=== PATIENT | female | born 1950 | race Caucasian/White ===

== ENCOUNTER 2017-02-01 16:14 | Emergency (ER) | payer MEDICARE ==
--- NOTE | ~2017-02-01 | EKG ---
PATIENT: MARCO ANTONIO COLLADO UNIT #: [id number] Ventricular Rate: 93 BPM Atrial Rate: 93 BPM P-R Interval: 182 ms QRS Duration: 64 ms Q-T Interval: 370 ms QTC Calculation(Bezet): 460 ms P [place]: 60 degrees Calculated R [place]: 29 degrees Calculated T [place]: 37 degrees Diagnosis Line: Normal sinus rhythm Diagnosis Line: Normal ECG Diagnosis Line: Diagnosis Line: Confirmed by MEGHAN RAMIRES MD ([id number]) on 02/01/2017 Diagnosis Line: 5:44:35 PM INTERPRETING MD: IKE SUN
[~2017-02-01 16:14] MED LIST: ATENOLOL PO; ATENOLOL50 MG PO; FLEXERIL10 MG PO; NORVASC PO; PREDNISONE1 MG PO
[2017-02-01 17:42] LABS: BASOPHIL% 0.4 % (0-2.5); EOSINOPHIL# 0.3 X10e3 (0-0.7); EOSINOPHIL% 3.1 % (0.0-7.0); HEMATOCRIT 41.2 % (35.0-45.0); HEMOGLOBIN 13.4 gm/dL (12.0-16.0); LYMPHOCYTE% 17.6 % (17.0-45.0); MEAN CELL VOLUME 84.6 FL (83-96); MEAN CORPUSCULAR HEMOGLOBIN 27.5 PG (28-34); MEAN CORPUSCULAR HGB CONC 32.5 g/dL (30-36); MONOCYTE# 0.5 X10e3 (0-1.0); MONOCYTE% 4.2 % (3.0-12.0); NEUTROPHIL# 8.4 X10e3 (1.5-7.1); NEUTROPHIL% 74.7 % (40-75); PLATELET COUNT 415 X10e3 (140-420); RED BLOOD COUNT 4.87 X10e (3.90-5.30); RED CELL DISTRIBUTION WIDTH 13.2 % (11.0-15.5); WHITE BLOOD COUNT 11.3 X10e3 (4.0-10.5)
[2017-02-01 17:47] LABS: DIFF IND NO
[2017-02-01 18:03] LABS: BUN/CREATININE RATIO 22.22; CALCIUM SERUM 9.3 mg/dL (8.4-10.2); CREATININE SERUM 0.9 mg/dL (0.6-1.4); GLOM FILT RATE Estimated 66.2 mL/min (>60); POTASSIUM 3.6 mmol/L (3.5-5.1)
[2017-02-01 18:09] LABS: POC - CKMB 1.4 ng/mL (0.0-7.9); POC - TROPONIN <0.05 ng/mL (<=0.05)
== END 2017-02-01 18:47 | disposition home or self-care (01) ==
LOC: CED 16:14
PROVIDERS: Emergency Medicine
DX: I10 Essential (primary) hypertension (principal)
CPT/HCPCS: 36415; 80048; 82553; 84484; 85025; 93005; 99284

== ENCOUNTER 2017-02-27 00:11 | Emergency (ER) | payer MEDICARE ==
--- NOTE | ~2017-02-27 | CR72 ---
[facility] A Service of [facility] RADIOLOGY TEXT RESULTS PATIENT: MARCO ANTONIO COLLADO LOCATION: [facility] : 48 UNIT #: [id number] AGE: [address]: Aliyah Lai APRN SEX: F ORDER DR: [id number] [facility] [address] [place], [place] [address] [id number] MR#: [id number] Acc #: [id number] NAME: MARCO ANTONIO COLLADO : 1950 SEX: F STUDY DATE/TIME: 02/27/2017 2:25 UNIT: [facility] ROOM: STUDY DESCRIPTION: CR Chest Single View Portable Attending Physician: Aliyah Lai A.P.R.N. Ordering Physician: Aliyah Lai A.P.R.N. Primary Care Physician: No Primary Care Physician MEDICAL IMAGING REPORT This report is preliminary unless electronic signature is present EXAM Chest x-ray: 02/27/2017. HISTORY 66-year-old female in the ED with worsening chest pain tonight. She notes chronic chest pain. Some shortness of air. Hypertension. TECHNIQUE AP portable chest x-ray. FINDINGS Mild cardiomegaly. Pulmonary vascularity is normal. The lungs are expanded and clear. No visible pulmonary infiltrate or pleural effusion. IMPRESSION No active disease. No change since 11/05/2015. Dictated by... Greg Harden M.D. THIS IS AN ELECTRONICALLY VERIFIED REPORT Greg Harden M.D. at 02/27/2017 10:03 PM CASIE/marlen TD: 02/27/2017 10:41 JOB #: [id number] MEDICAL IMAGING REPORT Page 1 of 1 COPY
--- NOTE | ~2017-02-27 | EKG ---
PATIENT: MARCO ANTONIO COLLADO UNIT #: [id number] Ventricular Rate: 102 BPM Atrial Rate: 102 BPM P-R Interval: 162 ms QRS Duration: 66 ms Q-T Interval: 342 ms QTC Calculation(Bezet): 445 ms P [place]: 56 degrees Calculated R [place]: 35 degrees Calculated T [place]: 34 degrees Diagnosis Line: Sinus tachycardia Diagnosis Line: Otherwise normal ECG Diagnosis Line: No previous ECGs available Diagnosis Line: Confirmed by MAMI GUARDADO MD ([id number]) on 02/27/2017 Diagnosis Line: 11:05:45 PM INTERPRETING MD: DEBBY SUN
[2017-02-27 02:49] LABS: URINE SOURCE CLEAN CATCH
[2017-02-27 02:50] LABS: POC - CKMB 1.3 ng/mL (0.0-7.9); POC - TROPONIN <0.05 ng/mL (<=0.05)
[2017-02-27 02:52] LABS: URINE APPEARANCE CLEAR; URINE BILIRUBIN NEG (NEG); URINE BLOOD 1+ (NEG); URINE COLOR YELLOW; URINE GLUCOSE NEG (NEG); URINE KETONE NEG (NEG); URINE LEUKOCYTE ESTERASE NEG (NEG); URINE NITRATE NEG (NEG); URINE PH 7.5 (5-8); URINE PROTEIN 2+ (NEG); URINE SPECIFIC GRAVITY 1.008 (1.003-1.035); URINE UROBILINOGEN 0.2 MG/DL (NEG)
[2017-02-27 02:54] LABS: BASOPHIL# 0.1 X10e3 (0-0.3); BASOPHIL% 0.7 % (0-2.5); DIFF IND NO; EOSINOPHIL# 0.4 X10e3 (0-0.7); EOSINOPHIL% 3.4 % (0.0-7.0); HEMATOCRIT 39.1 % (35.0-45.0); HEMOGLOBIN 12.9 gm/dL (12.0-16.0); LYMPHOCYTE# 2.1 X10e3 (1.0-3.5); LYMPHOCYTE% 20.2 % (17.0-45.0); MEAN CELL VOLUME 84.8 FL (83-96); MEAN CORPUSCULAR HEMOGLOBIN 27.9 PG (28-34); MEAN CORPUSCULAR HGB CONC 32.9 g/dL (30-36); MEAN PLATELET VOLUME 8.1 FL (6.5-11.5); MONOCYTE# 0.5 X10e3 (0-1.0); MONOCYTE% 4.3 % (3.0-12.0); NEUTROPHIL# 7.5 X10e3 (1.5-7.1); NEUTROPHIL% 71.4 % (40-75); PLATELET COUNT 354 X10e3 (140-420); RED BLOOD COUNT 4.61 X10e (3.90-5.30); RED CELL DISTRIBUTION WIDTH 13.4 % (11.0-15.5); URINE BACTERIA AUWI NEG (NEGATIVE); URINE SQUAMOUS EPITHELIAL CELL NONE SEEN /[HPF]; UWBCS1 AUWI 0-2 (0-5); WHITE BLOOD COUNT 10.6 X10e3 (4.0-10.5)
[2017-02-27 02:55] LABS: CULTURE INDICATED? NO
[2017-02-27 03:32] LABS: ALBUMIN SERUM 4.1 g/dL (3.5-5.0); ALKALINE PHOSPHATASE 92 U/L (32-92); ALT (SGPT) 15 U/L (10-40); AST (SGOT) 17 U/L (10-42); BILIRUBIN, DIRECT <0.1 mg/dL (0.0-0.2); BILIRUBIN,INDIRECT 0.2 mg/dL (0.0-0.9); BILIRUBIN,TOTAL 0.3 mg/dL (0.2-2.0); BLOOD UREA NITROGEN 20 mg/dL (9-23); CALCIUM SERUM 9.2 mg/dL (8.4-10.2); CARBON DIOXIDE 27 mmol/L (22-31); CHLORIDE 104 mmol/L (100-111); CREATININE SERUM 0.8 mg/dL (0.6-1.4); GLOM FILT RATE Estimated 76.4 mL/min (>60); GLUCOSE FASTING 132 mg/dL (70-110); LIPASE 26 U/L (22-51); POTASSIUM 4.1 mmol/L (3.5-5.1); PROTEIN TOTAL SERUM 8.6 g/dL (6.0-8.3); SODIUM 137 mmol/L (135-145)
== END 2017-02-27 04:22 | disposition home or self-care (01) ==
LOC: CED 00:11
PROVIDERS: Nurse Practitioner
DX: I10 Essential (primary) hypertension (principal); Z90.49 Acquired absence of other specified parts of digestive tract
CPT/HCPCS: 36415; 71010; 80048; 80076; 81003; 82553; 83690; 84484; 85025; 93005; 99284